=== PATIENT | female | born 1950 | race Caucasian/White ===

== ENCOUNTER → 2018-06-12 | Outpatient (CLI) | payer MEDICARE ==
--- NOTE | 2018-06-18 20:41 | HM ---
HOLTER MONITOR REPORT 24-HOUR HOLTER REPORT: DATE OF SERVICE: 06/12/2018 Patient in her diary indicated mostly activities. There were 1 or 2 episodes of lightheadedness, but overall no significant symptoms were reported. Predominant rhythm appears to be sinus with isolated ventricular ectopic beats. Average heart rate was about 65 beats per minute with heart rate ranging from 48 to 96 beats per minute. There is evidence of isolated ventricular ectopy. There is no evidence of any significant bradyarrhythmia. At the time patient had a sensation of some lightheadedness, no specific recordings were obtained. Presumably there was no evidence of any significant arrhythmia correlating her one episode of lightheadedness that occurred at about 1:05 p.m. FINAL IMPRESSION: Predominant rhythm is sinus with an average heart rate of 65 beats per minute. There is evidence of isolated ventricular ectopy, which was infrequent. There was no evidence of any bradyarrhythmia. MMODL / IJN: [id number] /
== END ==
LOC: RADECHMAIN 11:51
PROVIDERS: ATTEND Family Medicine
DX: R00.1 Bradycardia, unspecified (principal); R07.9 Chest pain, unspecified; Z88.0 Allergy status to penicillin; Z88.8 Allergy status to other drugs, medicaments and biological substances
CPT/HCPCS: 93225; 93226

== ENCOUNTER → 2020-12-21 | Outpatient (CLI) | payer MEDICARE ==
[2020-12-22 01:33] LABS: Gliadin AB IgA, Deaminated NEGATIVE (NEGATIVE); Gliadin AB IgA, Unit 0.3 U/mL; Gliadin AB IgG, Deaminated NEGATIVE (NEGATIVE)
== END | disposition home or self-care (01) ==
LOC: LABWHC1 14:20
PROVIDERS: ATTEND Internal Medicine
DX: K52.9 Noninfective gastroenteritis and colitis, unspecified (principal)
CPT/HCPCS: 36415; 83516

== ENCOUNTER → 2021-06-06 | Outpatient (CLI) | payer MEDICARE ==
[2021-06-06 16:21] LABS: Basophils # (A) 0.04 X 10*3/uL (0.00-0.10); Basophils % (A) 0.7 %; Eosinophils # (A) 0.15 X 10*3/uL (0.04-0.35); Eosinophils % (A) 2.7 %; HCT 40.8 % (37.2-46.3); HGB 13.1 g/dL (12.0-15.0); Lymphocytes # (A) 1.92 X 10*3/uL (0.90-5.00); Lymphocytes % (A) 34.1 %; MCHC 32.1 g/dL (32.0-37.0); MCV 93.4 fL (80.0-97.0); Monocytes # (A) 0.44 X 10*3/uL (0.20-1.00); Monocytes % (A) 7.8 %; Neutrophils # (A) 3.07 X 10*3/uL (1.80-7.70); Neutrophils % (A) 54.5 %; Platelet Count 262 X 10*3/uL (140-440); RBC 4.37 X 10*6/uL (4.10-5.20); WBC 5.63 X 10*3/uL (4.50-10.00)
[2021-06-07 05:50] LABS: African American GFR (CKD) 102.3 (60.0-200.0); Albumin 4.6 g/dL (3.8-4.9); Albumin/Globulin Ratio 2.1 (1.60-3.17); BUN/Creat Ratio 20.49 Ratio (12.00-20.00); Blood Urea Nitrogen 13.5 mg/dL (9.0-27.0); Calcium 9.5 mg/dL (8.7-10.3); Carbon Dioxide 25.3 mmol/L (21.6-31.8); Globulin 2.2 g/dL (1.6-3.3); Non-African American GFR(CKD) 88.3 (60.0-200.0); Total Bilirubin 0.9 mg/dL (0.30-1.20); Total Protein 6.7 g/dL (6.2-8.2)
== END | disposition home or self-care (01) ==
LOC: LABWHC1 09:23
PROVIDERS: ATTEND Internal Medicine Gastroenterology
DX: R94.5 Abnormal results of liver function studies (principal)
CPT/HCPCS: 36415; 80053; 85025

== ENCOUNTER → 2021-09-04 | Outpatient (CLI) | payer MEDICARE ==
[2021-09-04 11:25] LABS: Basophils # (A) 0.03 X 10*3/uL (0.00-0.10); Basophils % (A) 0.6 %; Eosinophils # (A) 0.14 X 10*3/uL (0.04-0.35); HCT 38.4 % (37.2-46.3); HGB 12.6 g/dL (12.0-15.0); Lymphocytes # (A) 1.91 X 10*3/uL (0.90-5.00); Lymphocytes % (A) 40.5 %; MCH 30.2 pg (27.0-32.0); MCHC 32.8 g/dL (32.0-37.0); MCV 92.1 fL (80.0-97.0); Mean Platelet Volume 9.5 fL (9.5-12.2); Monocytes # (A) 0.28 X 10*3/uL (0.20-1.00); Monocytes % (A) 5.9 %; Neutrophils # (A) 2.34 X 10*3/uL (1.80-7.70); Neutrophils % (A) 49.6 %; Platelet Count 268 X 10*3/uL (140-440); RBC 4.17 X 10*6/uL (4.10-5.20); RDW 11.7 % (11.5-14.5); WBC 4.72 X 10*3/uL (4.50-10.00)
[2021-09-04 13:11] LABS: African American GFR (CKD) 104.8 (60.0-200.0); Albumin 4.5 g/dL (3.8-4.9); Albumin/Globulin Ratio 2.05 (1.60-3.17); Anion Gap 13.7 mmol/L (10.00-18.00); BUN/Creat Ratio 21.33 Ratio (12.00-20.00); Blood Urea Nitrogen 12.8 mg/dL (9.0-27.0); Calcium 9.4 mg/dL (8.7-10.3); Carbon Dioxide 25.3 mmol/L (20.0-27.5); Globulin 2.2 g/dL (1.6-3.3); Non-African American GFR(CKD) 90.4 (60.0-200.0); Potassium 3.6 mmol/L (3.5-5.5); Total Bilirubin 0.5 mg/dL (0.30-1.20); Total Protein 6.7 g/dL (6.2-8.2)
== END | disposition home or self-care (01) ==
LOC: LABWHC1 08:04
PROVIDERS: ATTEND Internal Medicine Gastroenterology
DX: R94.5 Abnormal results of liver function studies (principal)
CPT/HCPCS: 36415; 80053; 85025

== ENCOUNTER → 2021-09-10 | Outpatient (CLI) | payer MEDICARE ==
[2021-09-10 23:27] LABS: Basophils # (A) 0.04 X 10*3/uL (0.00-0.10); Basophils % (A) 0.5 %; Eosinophils # (A) 0.11 X 10*3/uL (0.04-0.35); Eosinophils % (A) 1.5 %; HCT 39.6 % (37.2-46.3); HGB 13.1 g/dL (12.0-15.0); Lymphocytes # (A) 2.19 X 10*3/uL (0.90-5.00); Lymphocytes % (A) 29.8 %; MCH 30.1 pg (27.0-32.0); MCHC 33.1 g/dL (32.0-37.0); Mean Platelet Volume 9.5 fL (9.5-12.2); Monocytes # (A) 0.37 X 10*3/uL (0.20-1.00); Neutrophils # (A) 4.61 X 10*3/uL (1.80-7.70); Neutrophils % (A) 62.9 %; Platelet Count 280 X 10*3/uL (140-440); RBC 4.35 X 10*6/uL (4.10-5.20); RDW 11.9 % (11.5-14.5); WBC 7.34 X 10*3/uL (4.50-10.00)
[2021-09-11 00:52] LABS: % Iron Saturation 23.04 (12.00-45.00); African American GFR (CKD) 102.9 (60.0-200.0); Albumin 4.7 g/dL (3.8-4.9); Albumin/Globulin Ratio 1.97 (1.60-3.17); BUN/Creat Ratio 20.5 Ratio (12.00-20.00); Carbon Dioxide 27.2 mmol/L (20.0-27.5); Globulin 2.4 g/dL (1.6-3.3); Non-African American GFR(CKD) 88.8 (60.0-200.0); Potassium 4.5 mmol/L (3.5-5.5); Total Bilirubin 0.7 mg/dL (0.30-1.20); Total Protein 7.1 g/dL (6.2-8.2)
[2021-09-11 03:12] LABS: Hepatitis B Surface Antigen Nonreactive (Nonreactive); Hepatitis C IgG Antibody Nonreactive (Nonreactive)
[2021-09-11 03:34] LABS: Ceruloplasmin 21.9 mg/dL (20.0-60.0)
[2021-09-11 13:44] LABS: Albumin 4.33 g/dL (3.80-4.90); Gamma Globulin 1.02 g/dL (0.70-1.50)
== END | disposition home or self-care (01) ==
LOC: LABWHC1 13:37
PROVIDERS: ATTEND Internal Medicine Gastroenterology
DX: R94.5 Abnormal results of liver function studies (principal)
CPT/HCPCS: 36415; 80053; 82103; 82390; 82728; 83516; 83540; 83550; 84165; 85025; 86038; 86803; 87340

== ENCOUNTER → 2023-05-02 | Day surgery (SDC) | payer MEDICARE ==
[2023-04-30 12:17] VITALS: BMI 25.2
[~2023-05-02] MED LIST: LIDOCAINE 2% INJ 20 MG/ML (2 ML VIAL) ONE; PROPOFOL 10 MG/ML 20 ML VIAL IV ONE
[2023-05-02 13:22] VITALS: RESP 16; TEMP 98.4
[2023-05-02] MEDS: LACTATED RINGERS 1,000 ML IV SCH ×2 (13:29→14:06)
--- NOTE | 2023-05-02 14:26 | P.PCN ---
Date of Procedure: 05/02/23 Procedure(s) Performed: BRIEF HISTORY: Patient is a 72-year-old pleasant 8 female scheduled for an elective colonoscopy as a part of evaluation of prior history of colon polyps and change in bowel habits. PROCEDURE PERFORMED: Colonoscopy. PREOPERATIVE DIAGNOSIS: History of colon polyps and change in bowel habits. IV sedation per Anesthesia. PROCEDURE: After informed consent was obtained, the patient, was brought into the endoscopy unit. IV sedation was administered by Anesthesia under continuous monitoring. Digital rectal examination was normal. Initially the Olympus CF-160 flexible video colonoscope was then inserted in the rectum, gradually advanced into the cecum without any difficulty. Careful examination was performed as the scope was gradually being withdrawn. Ileocecal valve and the appendiceal orifice were visualized and appeared normal. Prep was excellent. Mucosa of the cecum, ascending colon, transverse colon, descending colon, sigmoid colon, and rectum appeared normal. Scattered sigmoid diverticulosis. Retroflexion was performed in the rectum and no lesions were seen. The patient tolerated the procedure well. IMPRESSION: Normal-appearing colon from rectum to cecum with no emesis of colorectal neoplasia scattered sigmoid diverticulosis . RECOMMENDATIONS: Findings of this examination were discussed with the patient as well as her family. She was advised to have a repeat screening colonoscopy at age 78..
[2023-05-02 14:46] VITALS: BP 145/65; PULSE 66
== END ==
LOC: ORWHC2ENDO 11:18
PROVIDERS: ATTEND Internal Medicine Gastroenterology
DX: Z12.11 Encounter for screening for malignant neoplasm of colon (principal); K57.30 Diverticulosis of large intestine without perforation or abscess without bleeding; I10 Essential (primary) hypertension; Z79.899 Other long term (current) drug therapy; Z91.09 Other allergy status, other than to drugs and biological substances; Z86.010 Personal history of colon polyps
CPT/HCPCS: 45378; J2704; J2001

== ENCOUNTER → 2024-01-01 | Outpatient (CLI) | payer MEDICARE | END | disposition home or self-care (01) | LOC: LABPAT 11:56 | PROVIDERS: ATTEND Orthopaedic Surgery | DX: Z01.812 Encounter for preprocedural laboratory examination (principal); M17.11 Unilateral primary osteoarthritis, right knee; Z22.322 Carrier or suspected carrier of Methicillin resistant Staphylococcus aureus | CPT/HCPCS: 87070 ==

== ENCOUNTER 2024-01-21 11:07 | Day surgery (SDC) | payer MEDICARE ==
[2024-01-15 09:07] VITALS: BMI 25.2
--- NOTE | 2024-01-19 09:07 | P.HPOR ---
History of Present Illness H&P Date: 01/19/24 Chief Complaint: Right knee pain Patient is a 73-year-old retired female who presents with right knee pain for the past several years worsening over the past year. She is having a difficult time with any weightbearing activities. She notes stiffness. She is having night symptoms. She's tried injections and medications with only temporary partial relief. Review of Systems As per HPI Past Medical History Past Medical History: Hearing Disorder / Deafness, Hypertension Additional Past Medical History / Comment(s): SEASONAL ALLERGIES, IBS History of Any Multi-Drug Resistant Organisms: None Reported Past Surgical History: Cholecystectomy Additional Past Surgical History / Comment(s): COLONOSCOPY, BILAT CATARACT REMOVAL WITH LENS IMPLANTS Past Anesthesia/Blood Transfusion Reactions: No Reported Reaction Additional Past Anesthesia/Blood Transfusion Reaction / Comment(s): No hx of blood transfusion. Smoking Status: Never smoker - Past Family History Mother Family Medical History: No Reported History Medications and Allergies Home Medications Medication Instructions Recorded Confirmed Type Aspirin [Adult Low Dose Aspirin EC] 81 mg PO HS 04/30/23 01/15/24 History Calcium 1020 Mg 2 tab PO BID 04/30/23 01/15/24 History Cholecalciferol (Vitamin D3) 2,000 unit PO QAM 04/30/23 01/15/24 History [Vitamin D3 (50 Mcg = 2000 Iu) Chew Tab] Fexofenadine HCl 180 mg PO QAM 04/30/23 01/15/24 History Losartan/Hydrochlorothiazide 1 tab PO QAM 04/30/23 01/15/24 History [Losartan-Hctz 100-25 mg Tab] Multivit with Calcium,Iron,Min 1 each PO QAM 04/30/23 01/15/24 History [Women's Multivitamin] Ibgard (Unknown Dose) 1 dose PO QAM 01/15/24 01/15/24 History Ibuprofen (Unknown Dose) 1 dose PO Q8H PRN 01/15/24 01/15/24 History Metamucil W/Iron (Unknown Dose) 1 dose PO BID 01/15/24 01/15/24 History Tylenol (Unknown Dose) 1 dose PO Q8H PRN 01/15/24 01/15/24 History Allergies Allergy/AdvReac Type Severity Reaction Status Date / Time No Known Allergies Allergy Verified 01/15/24 08:52 Physical Examination - Knee right Appearance: effusion Effusion grade: grade 2 Varus alignment in stance: 10 degrees Tenderness with palpation: anterior, medial Pain: throughout ROM Gait: limping ROM: extension: -10 degrees ROM: flexion: 120 degrees Crepitus with motion: Yes Strength: extension: 5/5 Strength: flexion: 5/5 Meniscal tests: medial meniscal tests: positive, medial joint line pain: positive Results Patient is a well-developed well-nourished female approximately 5 foot tall, 125 pounds of mesomorphic habitus. HEENT exam is nonfocal, neck is supple. She has painless passive motion of her right hip. Straight leg raise is negative. She tender about the medial joint line of the right knee. Collaterals are stable, Belle was negative, Megan's is equivocal. Her distal neurovascular appears intact in the right upper extremity. - Diagnostic results Knee x-ray: image reviewed (3 views of the right knee obtain the office show severe medial and patellofemoral compartment narrowing with subchondral sclerosis and [id number] changes.) Assessment and Plan Assessment: Right knee severe medial and patellofemoral compartment osteoarthrosis Plan: I talked to the patient at length regarding her condition along with treatment options. At this point she is quite limited because of pain related to her osteoarthrosis despite conservative measures. After a thorough discussion she opts to proceed with surgery. We'll plan to proceed with right total knee arthroplasty. Risks and benefits were discussed at length in layman's terms. We will institute DVT prophylaxis postoperatively.
[~2024-01-21 11:07] MED LIST changes: +HYDROmorphone 0.5 MG/0.5 ML SYRINGE IVP PRN; +LIDOCAINE 1% (10MG/ML) FOR IV START INTRADERMA PRN; -LIDOCAINE 2% INJ 20 MG/ML (2 ML VIAL) ONE; +MIDAZOLAM 2 MG/2 ML VIAL IV PRN; -PROPOFOL 10 MG/ML 20 ML VIAL IV ONE; +TRANEXAMIC 1,000 MG/100ML-NACL 1,000 MG in SALINE 1 100ML.BAG IVPB PRN
[2024-01-21] MEDS: LACTATED RINGERS 1,000 ML IV SCH (11:34)
[2024-01-21] MEDS ORDERED: ONDANSETRON 4 MG/2 ML VIAL ONE (11:39)
[2024-01-21] MEDS: MELOXICAM 7.5 MG TAB PO PRN (12:10)
[2024-01-21] MEDS: ACETAMINOPHEN TAB 500 MG TAB PO PRN (12:10)
[2024-01-21] MEDS: ONDANSETRON 4 MG/2 ML VIAL IVP ONE (12:10)
[2024-01-21] MEDS: DEXAMETHASONE SOD PHOSPHATE 4 MG/ML 1 ML VIAL IV ONE (12:10)
[2024-01-21] MEDS: MIDAZOLAM 2 MG/2 ML VIAL IVP ONE (12:21)
[2024-01-21] MEDS: fentaNYL (PF) 50 MCG/ML 2 ML AMP IVP ONE (12:21)
[2024-01-21] MEDS: ceFAZolin 1,000 MG in SODIUM CHLORIDE 0.9% 1,000 ML IRRIGATION ONE (13:00)
[2024-01-21] MEDS ORDERED: SODIUM CHLORIDE 0.9% (PF) 10 ML VIAL ONE (13:23)
[2024-01-21] MEDS ORDERED: KETAMINE HCL IN 0.9 % NACL 50 MG/5 ML SYRINGE ONE (13:23)
[2024-01-21] MEDS ORDERED: fentaNYL (PF) 50 MCG/ML 2 ML AMP ONE (13:23)
[2024-01-21] MEDS ORDERED: MIDAZOLAM 2 MG/2 ML VIAL ONE (13:23)
[2024-01-21] MEDS ORDERED: PROPOFOL 10 MG/ML 20 ML VIAL IV ONE (13:23)
[2024-01-21] MEDS ORDERED: GLYCOPYRROLATE 0.2 MG/ML 2 ML VIAL ONE (13:23)
[2024-01-21] MEDS ORDERED: ROPIVACAINE 5 MG/ML 30 ML VIAL ONE (13:23)
[2024-01-21] MEDS ORDERED: PHENYLEPHRINE-0.9% NACL SYG 1,000 MCG/10 ML SYRINGE ONE (13:23)
[2024-01-21] MEDS ORDERED: TRANEXAMIC 1,000 MG/100ML-NACL PREMIX BAG ONE (13:23)
[2024-01-21] MEDS: LACTATED RINGERS 1,000 ML IV ONE (13:41)
[2024-01-21] MEDS ORDERED: hydrOXYzine pamoate 25 MG CAP PO PRN (14:03)
[2024-01-21] MEDS ORDERED: MAGNESIUM HYDROXIDE 2,400 MG/30 ML CUP PO PRN (14:03)
[2024-01-21] MEDS ORDERED: HYDROcodone/APAP 5-325MG 1 EACH TAB PO PRN (14:03)
[2024-01-21] MEDS ORDERED: NALOXONE 0.4 MG/ML 1 ML VIAL IV PRN (14:03)
[2024-01-21] MEDS ORDERED: HYDROmorphone 0.5 MG/0.5 ML SYRINGE IVP PRN ×2 (14:03)
--- NOTE | 2024-01-21 14:28 | P.OP ---
Date of Procedure: 01/21/24 Preoperative Diagnosis: Right knee severe tricompartmental osteoarthrosis Postoperative Diagnosis: Same Procedure(s) Performed: Right total knee arthroplastycementedcruciate retaining Implants: Depuy Attune size 5 narrow cemented femoral component, size 4 cemented tibial component, 10 mm articular surface, 32 mm cemented patellar component. This is a cruciate retaining implant. Anesthesia: regional, spinal Surgeon: John Ho Senior Education Specialist #1: Jose Vogel Estimated Blood Loss (ml): 50 Pathology: none sent Condition: stable Disposition: PACU Indications for Procedure: The patient is a 73-year-old female who presents with progressive right knee pain secondary to osteoarthrosis despite conservative measures. A discussion of the risks and benefits of operative intervention versus continued conservative measures was made with the patient. She opted to proceed with surgery. Operative risks include infection, neurovascular injury, development of blood clots, fracture, possible component loosening/failure and possible need for subsequent procedures was discussed. Informed consent was obtained. Operative Findings: As below Description of Procedure: The patient was brought to the operating room, and after induction of spinal anesthesia the right lower extremity was prepped and draped in a normal fashion. The tourniquet was inflated to 270 mmHg. A longitudinal incision extending 3 finger breaths above the superior pole of the patella extending to the medial aspect the tibial tubercle was then made. The skin and subcutaneous tissues were divided sharply. Electrocautery was used for hemostasis. A medial parapatellar arthrotomy was then performed. The medial soft tissues to include the superficial and deep portions of the medial collateral ligament as well as the medial hamstring tendons were elevated subperiosteally. The proximal medial tibia osteophytes were carefully removed. The patella was everted. The knee was flexed. A portion of the retropatellar fat pad was excised sharply. The anterior cruciate ligament was sacrificed. A starting hole was made in the distal femur 1 cm anterior to the posterior cruciate origin. An intramedullary femoral guide was gently inserted planning on 5 valgus distal cut with 9 mm distal resection. The cutting block was pinned in place. The distal cut was then made. The posterior referencing sizing guide was utilized. 3 of external rotation was built into the system and verified off the trans- epicondylar axis and the posterior condyles. I felt size 5 narrow was most appropriate. The cutting block was pinned in place. The anterior, posterior, and chamfer cuts were then made. The bone fragments were removed. A sulcus cut was then made with the appropriate guide. The trial size 5 narrow femoral component was then placed and was fully seated. There was good anterior to posterior and medial to lateral fit. The distal peg holes were then drilled. The trial component was then removed. Attention was then paid towards preparing the proximal tibia. An extra medullary guide was utilized in line with the tibial shaft and second metatarsal distally. A 7 posterior slope was planned. I planned on 2 mm resection from the medial compartment. The cutting block was pinned in place. The proximal tibial cut was then made. The bone was removed in one fragment. The remnants of the medial and lateral menisci were excised the capsule junction with electrocautery. The tibia sized most appropriately at size 4. The posterior osteophytes off the distal femur were carefully removed with a curved osteotome. The trial tibial and femoral components were placed along with a 10 millimeters articular surface. I was able to obtain full flexion and extension with good stability with varus and valgus stress. After several flexion and extension cycles, the tibial rotation was marked with electrocautery in line with the medial one third of the tibial tubercle. Attention was then paid towards preparing the patella. A patella reamer was utilized taking this down to 14 mm of bone stock. A good flush cut was made. The patella sized most appropriately at 32 millimeters. The peg holes were then drilled. The trial component was placed. The knee was taken through a range of motion. I had good patellofemoral tracking with no hands technique. The trial components were then removed. The tibia was prepared in the appropriate rotation with appropriate drill and keel punch. The flexion and extension gaps were checked and felt to be symmetric. The bony surfaces were prepared with pulsatile lavage and dried. The deep tibial component was then cemented in place and was fully seated. Excess cement was removed. The femoral component was cemented in place and was fully seated. Again excess cement was removed. The trial 10 millimeters surface was then inserted in the knee was put in full extension. The patella component was cemented in place. After the cement had sufficiently hardened, the knee was again taken through a range of motion. Again there was good stability in flexion and extension with varus and valgus stress. The trial articular surface was then removed. The final articular surface was placed and was impacted. Care was taken to avoid any soft tissue interposition. Pulsatile lavage was again utilized. The tourniquet was deflated with approximately 50 minutes total tourniquet time. There was minimal drainage therefore a deep drain was not placed. The medial parapatellar arthrotomy was then closed with #2 Ethibond suture. The subcutaneous tissues were reapproximated interrupted 2-0 Vicryl sutures. The skin was reapproximated with 3-0 subarticular strata fix suture. Skin tape and adhesive was applied. A sterile dressing was applied. The patient was then awoken from sedation and transferred to recovery room in good condition. Blood loss was estimated at 50 milliliters. No complications were incurred. Sponge and needle counts were correct at the end the case. Jose CHEEMA assisted during the major components this case to include exposure, bone resection, and implantation.
[2024-01-21] MEDS: ROPIVACAINE 1,100 MG, SODIUM CHLORIDE 0.9% 500 ML 330 ML, EMPTY PAIN BALL 1 EACH MISCELLANE PRN (15:05)
--- NOTE | 2024-01-21 15:07 | P.ANPRN ---
Procedure Note - Anesthesia - Nerve Block Performed Right Adductor Canal Infusion Time Out Performed: Yes (1220) Date of Procedure: 01/21/24 Procedure Start Time: 12:21 Procedure Stop Time: 12:26 Location of Patient: PreOp Indication: Acute Post-Operative Pain, Requested by Surgeon Specifically requested for management of pain by : John Ho Sedation Type: Sedate with meaningful contact maintained Preparation: Sterile Prep, Sterile Dressing Position: Supine Catheter Depth at Skin (cm): 7 Catheter: Indwelling Needle Types: Pajunk Needle Gauge: 18 Ultrasound used to visualize needle placement: Yes Ultrasound used to observe medication spread: Yes Injectate: 0.5% Ropivacaine (see comment for volume) (15cc +10cc nacl pf) Blood Aspirated: No Pain Paresthesia on Injection Noted: No Resistance on Injection: Normal Image Stored and Saved: Yes Events: Uneventful and Well Tolerated
--- NOTE | 2024-01-21 15:08 | P.ANPRN ---
Procedure Note - Anesthesia - Nerve Block Performed Right iPack Single Time Out Performed: Yes (1220) Date of Procedure: 01/21/24 Procedure Start Time: : Procedure Stop Time: : Location of Patient: PreOp Indication: Acute Post-Operative Pain, Requested by Surgeon Specifically requested for management of pain by DrValencia: John Ho Sedation Type: Sedate with meaningful contact maintained Preparation: Sterile Prep Position: Supine Catheter: None Needle Types: Pajunk Needle Gauge: 21 Ultrasound used to visualize needle placement: Yes Ultrasound used to observe medication spread: Yes Injectate: 0.5% Ropivacaine (see comment for volume) (15cc + 10cc nacl pf) Blood Aspirated: No Pain Paresthesia on Injection Noted: No Resistance on Injection: Normal Image Stored and Saved: Yes Events: Uneventful and Well Tolerated
--- NOTE | 2024-01-21 16:05 | XR ---
EXAMINATION TYPE: XR knee limited RT DATE OF EXAM: 01/21/2024 CLINICAL HISTORY: Postoperative evaluation Two views of the right knee are submitted. Identified are changes of total knee arthroplasty with femoral and tibial components appearing well seated. Postsurgical soft tissue changes are noted. Alignment is anatomic.
--- NOTE | 2024-01-21 23:22 | P.CONS ---
History of Present Illness - History of Present Illness This is a pleasant 73 years old female with past medical history of hypertens ion, anxiety and depression, severe osteoarthritis of the right knee Patient is status post right total knee arthroplasty.. Postop day 0. Patient lying in bed comfortable Denies chest pain or dyspnea. No change in urine or bowel habits. No fever. No headache dizziness weakness numbness Patient denies smoking alcohol or illicit drugs. Vital stable, blood pressure slightly elevated, home medication no labs Imaging of the right knee is noted Review of Systems Review of systems CONSTITUTIONAL: No fever, no malaise, no fatigue. HEENT: No recent visual problems or hearing problems. Denied any sore throat. CARDIOVASCULAR: No orthopnea, PND, no palpitations, no syncope. PULMONARY: No shortness of breath, no cough, no hemoptysis. GASTROINTESTINAL: No diarrhea, no nausea, no vomiting, no abdominal pain. Normoactive bowel sounds. NEUROLOGICAL: No headaches, no weakness, no numbness. HEMATOLOGICAL: Denies any bleeding or petechiae. GENITOURINARY: Denies any burning micturition, frequency, or urgency. MUSCULOSKELETAL/RHEUMATOLOGICAL: Denies any joint pain, swelling, or any muscle pain. ENDOCRINE: Denies any polyuria or polydipsia. Past Medical History Past Medical History: Hearing Disorder / Deafness, Hypertension Additional Past Medical History / Comment(s): SEASONAL ALLERGIES, IBS History of Any Multi-Drug Resistant Organisms: None Reported Past Surgical History: Cholecystectomy, Orthopedic Surgery Additional Past Surgical History / Comment(s): COLONOSCOPY, BILAT CATARACT REMOVAL WITH LENS IMPLANTS Past Anesthesia/Blood Transfusion Reactions: No Reported Reaction Additional Past Anesthesia/Blood Transfusion Reaction / Comm: No hx of blood transfusion. Past Psychological History: No Psychological Hx Reported Smoking Status: Never smoker Past Alcohol Use History: Rare Past Drug Use History: None Reported - Past Family History Mother Family Medical History: No Reported History Medications and Allergies Home Medications Medication Instructions Recorded Confirmed Type Aspirin [Adult Low Dose Aspirin EC] 81 mg PO HS 04/30/23 01/21/24 History Calcium 1020 Mg 2 tab PO BID 04/30/23 01/21/24 History Cholecalciferol (Vitamin D3) 2,000 unit PO QAM 04/30/23 01/21/24 History [Vitamin D3 (50 Mcg = 2000 Iu) Chew Tab] Fexofenadine HCl 180 mg PO QAM 04/30/23 01/21/24 History Losartan/Hydrochlorothiazide 1 tab PO QAM 04/30/23 01/21/24 History [Losartan-Hctz 100-25 mg Tab] Multivit with Calcium,Iron,Min 1 each PO QAM 04/30/23 01/21/24 History [Women's Multivitamin] Ibgard (Unknown Dose) 1 dose PO QAM 01/15/24 01/21/24 History Ibuprofen (Unknown Dose) 1 dose PO Q8H PRN 01/15/24 01/21/24 History Metamucil W/Iron (Unknown Dose) 1 dose PO BID 01/15/24 01/21/24 History Tylenol (Unknown Dose) 1 dose PO Q8H PRN 01/15/24 01/21/24 History Allergies Allergy/AdvReac Type Severity Reaction Status Date / Time No Known Allergies Allergy Verified 01/21/24 11:48 Physical Exam Vitals: Vital Signs Temp Pulse Resp BP Pulse Ox 01/21/24 21:39 97.7 F 77 18 135/65 97 01/21/24 17:24 77 150/76 93 L 01/21/24 16:54 65 18 133/72 95 01/21/24 16:24 67 16 152/78 96 01/21/24 16:09 65 16 123/76 95 01/21/24 16:04 73 20 01/21/24 15:55 62 16 152/78 96 01/21/24 15:39 97.5 F L 77 17 166/82 97 01/21/24 15:36 97.5 F L 95 16 166/42 95 01/21/24 15:11 69 25 H 150/69 95 01/21/24 14:56 68 10 L 138/68 93 L 01/21/24 14:41 70 10 L 134/73 94 L 01/21/24 14:26 97.9 F 77 12 143/63 100 01/21/24 12:32 74 16 132/68 98 01/21/24 12:15 98.0 F 69 16 153/68 99 Intake and Output 01/21/24 01/21/24 01/22/24 14:59 22:59 06:59 Intake Total 1151 Output Total 50 Balance 1101 Intake: IV 1151 Output: Estimated Blood Loss 50 Other: # Voids 0 Weight 56.4 kg 56.4 kg GENERAL: The patient is alert and oriented x3, not in any acute distress. Well developed, well nourished. HEENT: Pupils are round and equally reacting to light. EOMI. No scleral icterus. No conjunctival pallor. Normocephalic, atraumatic. No pharyngeal erythema. No thyromegaly. CARDIOVASCULAR: S1 and S2 present. No murmurs, rubs, or gallops. PULMONARY: Chest is clear to auscultation, no wheezing , no crackles. ABDOMEN: Soft, nontender, nondistended, normoactive bowel sounds. No palpable organomegaly. MUSCULOSKELETAL: No joint swelling or deformity. -EXTREMITIES: No cyanosis, clubbing, or pedal edema. Right knee surgical wound with dressing in place, rest of exam is deferred to surgery team NEUROLOGICAL: Gross neurological examination did not reveal any focal deficits. SKIN: No rashes. no petechiae. Assessment and Plan Assessment: Right knee osteoarthritis, s/p right total knee arthroplasty, postop day #0 Hypertension History of depression, not an active issue Hearing difficulty Plan: Resume losartan, hydrochlorothiazide Resume aspirin Resume antidepressant Pain controlled DVT prophylaxis per orthopedic team
[2024-01-21] MEDS: SENNOSIDES-DOCUSATE SODIUM 1 EACH TAB PO SCH (23:36)
[2024-01-22] MEDS: LOSARTAN-HCTZ 50-12.5 MG 1 EACH TAB PO SCH (08:15)
[2024-01-22] MEDS: RIVAROXABAN 10 MG TAB PO SCH (08:16)
[2024-01-22] MEDS: LORATADINE 10 MG TAB PO SCH (08:16)
[2024-01-22] MEDS: HYDROcodone/APAP 7.5-325MG 1 EACH TAB PO PRN (08:16)
--- NOTE | 2024-01-22 08:19 | P.PN ---
Progress Note - Text Adequate analgesia. No complication from nerve block.
[2024-01-22 08:21] VITALS: BP 147/77; PULSE 73; RESP 18; TEMP 98.1
[2024-01-22 08:38] LABS: HCT 29.9 % (37.2-46.3); HGB 10.3 g/dL (12.0-15.0); MCH 30.3 pg (27.0-32.0); MCHC 34.4 g/dL (32.0-37.0); MCV 87.9 FL (80.0-97.0); Mean Platelet Volume 9.7 FL (9.5-12.2); NRBC Per 100 WBC 0 X 10*3/uL (0.00-0.01); Platelet Count 228 X 10*3/uL (140-440); RDW 11.7 % (11.5-14.5); WBC 9.85 X 10*3/uL (4.50-10.00)
[2024-01-22 08:39] LABS: Basophils # (A) 0.02 X 10*3/uL (0.00-0.10); Basophils % (A) 0.2 %; Eosinophils # (A) 0.01 X 10*3/uL (0.04-0.35); Eosinophils % (A) 0.1 %; Lymphocytes # (A) 1.25 X 10*3/uL (0.90-5.00); Lymphocytes % (A) 12.7 %; Monocytes # (A) 0.96 X 10*3/uL (0.20-1.00); Monocytes % (A) 9.7 %; Neutrophils # (A) 7.57 X 10*3/uL (1.80-7.70); Neutrophils % (A) 76.9 %
--- NOTE | 2024-01-22 09:10 | P.PN ---
Subjective Progress Note Date: 01/22/24 Principal diagnosis: Right knee osteoarthritis Patient was seen at bedside this morning sitting up in chair with legs elevated and dressing present over right knee. Patient says she just finished working with therapy and was able to walk in the hallway and up and down steps. Patient says her will be able to help her out when she goes home. She says she does have 3 steps into the home. Patient says she does have a walker at home she says she has urinated several times since surgery yesterday without issue. Patient says she has not had a bowel yet, however, patient says last night she was passing gas. Patient states pain is controlled with oral medication. Ortiz jiménez denies any other issues at this time. Objective - Vital Signs Vital signs: Vital Signs Temp 98.1 F 01/22/24 07:46 Pulse 73 01/22/24 07:46 Resp 18 01/22/24 07:46 BP 147/77 01/22/24 07:46 Pulse Ox 97 01/22/24 07:46 FiO2 Intake & Output 01/21/24 01/22/24 01/22/24 18:59 06:59 18:59 Intake Total 1151 Output Total 50 Balance 1101 Weight 56.4 kg Intake: IV 1151 Output: Estimated Blood Loss 50 Other: # Voids 0 3 - Exam Right knee: Incision is clean, dry, and intact. The exofin fusion tape is in good conditi on. There is minimal soft tissue swelling and ecchymosis surrounding the medial and lateral aspects of the incision. Calf is soft, no tenderness with palpation. Plantar flexion, dorsiflexion, EHL, FHL are intact. Sensory exam to light touch throughout the extremity is intact, dorsal pedis pulses 2+. - Labs CBC & Chem 7: 01/22/24 05:17 Labs: Abnormal Lab Results - Last 24 Hours (Table) 01/22/24 Range/Units 05:17 RBC 3.40 L (4.10-5.20) X 10*6/uL Hgb 10.3 L (12.0-15.0) g/dL Hct 29.9 L (37.2-46.3) % Eosinophils # 0.01 L (0.04-0.35) X 10*3/uL Assessment and Plan Assessment: 1. Right knee osteoarthritis -Postop day 1 status post right total knee arthroplasty Plan: 1. Right knee osteoarthritis -right total knee arthroplasty performed yesterday, , 01/21/2024. Patient stable at bedside this morning. Patient did do well with therapy this morning. Patient does have a walker for home. Discharge home today with health services. 2. Appreciate medical management 3. Pain management - norco 4. DVT prophylaxis -Xarelto on hospital. Going home with Eliquis 2.5 mg twice daily x 2 weeks 5. GI prophylaxis -senna 6. PT/OT -weightbearing as tolerated with walker 7. Encourage incentive spirometer use 8. Discharge planning -home today with health services. Time with Patient: Less than 30
--- NOTE | 2024-01-22 09:15 | P.DS ---
Providers Date of admission: 01/21/2024 Expected date of discharge: 01/22/24 Attending physician: John Ho Consults: 01/21/24 14:03 Consult Physician Routine Consulting Provider: Kelli Barksdale Consult Reason/Comments: medical management s/p right total knee arthroplasty Do you want consulting provider notified?: Yes Primary care physician: Anca Thomas Hospital Course: Date of admission: 01/21/2024 Date of discharge: 01/22/2024 Admission diagnosis: Right knee osteoarthritis Discharge diagnosis: Same Attending physician: Dr. Ho Surgical procedures: Right total knee arthroplasty Brief history: Patient is a 73-year-old female with a history of progressive primary right knee osteoarthritis. At this point patient has failed conservative treatment measures and has opted to proceed with a elective right total knee arthroplasty. Hospital course: Details of patient's surgery can be found in operative report. Patient tolerated the procedure well and was subsequently transported to orthopedic floor. Patient's orthopeidc and medical care was provided daily. Patient had daily laboratory tests performed for evaluation of overall blood counts. Patient had daily physical therapy to include strengthening range of motion as well as education with walker ambulation. Patient was treated with Xarelto for their postoperative DVT prophylaxis during their inpatient stay. Patient was noted to have a relatively uneventful postoperative course. Patient reported satisfactory pain control with oral pain medications by postoperative day 1. Patient showed satisfactory progress with physical therapy. Patient moved steadily through the program and had no difficulty meeting the goals by postoperative day 1. Given patient's otherwise satisfactory course and having met physical therapy goals, plan is to discharge patient home with health services on postoperative day 1. Discharge condition/disposition: Patient will be discharged home with health services in stable condition. Discharge medications: Instructions are given on resumption of patient's normal daily medications per primary care recommendation, in addition patient will be prescribed [place]; senna; Eliquis 2.5 mg twice daily x 2 weeks. Discharge instructions: 1. Wound care and infection precautions, keep incision dry and covered while showering, no lotions, creams, moisturizers. No soaking, tubs, pools, hottubs. Do not scrub over the incision. 2. Weight-bear as tolerated with walker / cane until follow-up. 3. Ice and elevate when necessary. Do not exceed 20 minutes per hour with ice pack. 4. Utilize compression sleeve until seen at first follow up appointment. 5. Visiting nursing care. 6. Home physical therapy including home CPM. 7. Pain meds and anticoagulants per prescription. 8. Pain medication has potential to cause constipation. Increase oral fluid and fiber intake. Contact primary care provider if you have not had a bowel movement within 48 hours after discharge 9. No anti-inflammatory medication until discussed at first post operative visit, this including Motrin, Aleve, Mobic, Diclofenac. 10. Follow up in office at 2 weeks postop with Raza Kruse PA-C / Jose Vogel PA-C 11. Follow up with your primary care doctor 7-10 days after discharge. 12. Contact [facility] with any questions, . Keep incision clean, dry, intact. While showering, cover fusion tape with Saran wrap. Keep fusion tape on until follow-up appointment in office 2 weeks Assessment: Right knee osteoarthritis Procedures: Right total knee arthroplasty Patient Condition at Discharge: Good Plan - Discharge Summary Discharge Rx Participant: No New Discharge Prescriptions: No Action Losartan/Hydrochlorothiazide [Losartan-Hctz 100-25 mg Tab] 1 tab PO QAM Fexofenadine HCl 180 mg PO QAM Calcium 1020 Mg 2 tab PO BID Tylenol (Unknown Dose) 1 dose PO Q8H PRN PRN Reason: Pain Metamucil W/Iron (Unknown Dose) 1 dose PO BID Multivit with Calcium,Iron,Min [Women's Multivitamin] 1 each PO QAM Cholecalciferol (Vitamin D3) [Vitamin D3 (50 Mcg = 2000 Iu) Chew Tab] 2,000 unit PO QAM Aspirin [Adult Low Dose Aspirin EC] 81 mg PO HS Ibuprofen (Unknown Dose) 1 dose PO Q8H PRN PRN Reason: Pain Ibgard (Unknown Dose) 1 dose PO QAM Discharge Medication List Aspirin [Adult Low Dose Aspirin EC] 81 mg PO HS 04/30/23 [History] Calcium 1020 Mg 2 tab PO BID 04/30/23 [History] Cholecalciferol (Vitamin D3) [Vitamin D3 (50 Mcg = 2000 Iu) Chew Tab] 2,000 unit PO QAM 04/30/23 [History] Fexofenadine HCl 180 mg PO QAM 04/30/23 [History] Losartan/Hydrochlorothiazide [Losartan-Hctz 100-25 mg Tab] 1 tab PO QAM 04/30/23 [History] Multivit with Calcium,Iron,Min [Women's Multivitamin] 1 each PO QAM 04/30/23 [History] Ibgard (Unknown Dose) 1 dose PO QAM 01/15/24 [History] Ibuprofen (Unknown Dose) 1 dose PO Q8H PRN 01/15/24 [History] Metamucil W/Iron (Unknown Dose) 1 dose PO BID 01/15/24 [History] Tylenol (Unknown Dose) 1 dose PO Q8H PRN 01/15/24 [History] Follow up Appointment(s)/Referral(s): Jose Vogel, CONY [PHYSICIAN MEETING SPECIALIST] - 2 Weeks Patient Instructions/Handouts: Knee Replacement (DC), Knee Replacement (GEN) Activity/Diet/Wound Care/Special Instructions: Orthopedic Discharge Instructions: 1. Wound care and infection precautions, keep incision dry and covered while showering, no lotions, creams, moisturizers. No soaking, pools, hot tubs. Do not scrub over incision. 2. Weight-bear as tolerated with walker / cane until follow-up. 3. Ice and elevate when necessary. Do not exceed 20 minutes per hour with ice pack. 4. Utilize compression sleeve until seen at first follow up appointment. 5. Pain meds and anticoagulants per prescription. 6. Pain medication has potential to cause constipation. Increase oral fluid and fiber intake. Contact primary care provider if you have not had a bowel movement within 48 hours after discharge. 7. No anti-inflammatory medication until discussed at first post operative visit, this including Motrin, Aleve, Mobic, Diclofenac. 8. Follow up in office at 2 weeks postop with Raza Kruse PA-C / Jose Vogel PA-C 9. Follow up with your primary care doctor 7-10 days after discharge. 10. Contact [facility] with any questions, . Keep incision clean, dry, intact. While showering, cover fusion tape with Saran wrap. Keep fusion tape on until follow-up appointment in office in 2 weeks. Discharge Disposition: HOME WITH HOME HEALTH SERVICES
[2024-01-22] MEDS ORDERED: ASPIRIN 81 MG PO SCH (21:00)
== END 2024-01-22 13:05 | disposition home health service (06) ==
LOC: OR 11:07 → 4SSUR 14:21 → OR 01-22 13:05
PROVIDERS: ATTEND Orthopaedic Surgery
DX: M17.11 Unilateral primary osteoarthritis, right knee (principal); G89.18 Other acute postprocedural pain; H91.90 Unspecified hearing loss, unspecified ear; I10 Essential (primary) hypertension; K58.9 Irritable bowel syndrome, unspecified; Z90.49 Acquired absence of other specified parts of digestive tract; Z79.82 Long term (current) use of aspirin; Z91.048 Other nonmedicinal substance allergy status; Z79.899 Other long term (current) drug therapy
CPT/HCPCS: 97161; 64999; 64448; 85025; 73560; 27447; C1713 ×2; C1776; C1751; J2250; J1100; J0690 ×3; J2405; J3010; J2795; J2704; J2371